=== PATIENT | female | born 1990 | race African-American/Black ===

== ENCOUNTER 2024-03-11 15:58 | Emergency (ER) | payer OTHER, SELFPAY ==
--- OUTSIDE RECORDS SUMMARY | 2024-03-11 16:01 | XMS_ITS | Continuity of Care Document ---
Author Organization [facility] Address [address] [place] [address]- Care Team Providers Care Cake Inspector Name Role Phone Ernestine Reyes NP Primary Care Physician Encounter [facility] Date(s): 01/18/24 - 02/17/[address] [id number]- Encounter Type: Triage Allergies, Adverse Reactions, Alerts No Known Allergies Immunizations Given and Recorded Vaccine Date Status Refusal Reason SARS-CoV-2 mRNA ([id number]) vax 02/12/22 Given SARS-CoV-2 mRNA ([id number]) vax 02/13/21 Recorded influenza virus vaccine, inactivated 02/12/22 Give n influenza virus vaccine, inactivated 12/26/19 Give n influenza virus vaccine, inactivated 03/24/16 Give n influenza virus vaccine, inactivated 03/14/13 Give n influenza virus vaccine, inactivated 1 12/11/11 Gi rudy Measles/Mumps/Rubella Virus Vaccine 02/24/20 Given tetanus/diphtheria/pertussis, acel(Tdap) 11/27/19 Given tetanus/diphtheria/pertussis, acel(Tdap) 09/01/16 Given tetanus/diphtheria/pertussis, acel(Tdap) 2 05/16/12 Given influ virus vac, H1N1, live(oldterm) 3 01/29/09 Gi rudy Human Papillomavirus Vaccine 4 01/29/09 Given Human Papillomavirus Vaccine 5 06/15/08 Given Human Papillomavirus Vaccine 6 04/09/08 Given Meningococcal Conjugate Vaccine 7 04/09/08 Given Tet/Diphth/Acel, Pertussis (oldterm) 8 04/09/08 Gi rudy 1Admin Note: vis 10/2011 2Admin Note: vis 04/21/2011 given 3Admin Note: vis 12/28/08 4Admin Note: vis 04/30/2006 5Admin Note: VIS GIVEN 04/30/2006 6Admin Note: VIS GIVEN 04/30/06 7Admin Note: vis given 11/11/06 8Admin Note: VIS GIVEN 10/07/05 Medications cyclobenzaprine 5 mg oral tablet 1 tablet = 5 mg, By Mouth, 2 times a day, # 42 tablet, 0 Refills, Maintenance, 09/13/23 9:57:00 AM EDT, Tablet, Partial fill upon patient request if the prescription is for a schedule II opioid drug. Start Date: 09/13/23 Stop Date: 09/27/23 Status: Ordered Quantity: 42.0 Unit: tablet Repeat number: 1 FIRST Mouthwash BLM mucous membrane suspension 5 mL, Swish and Spit, Every 4 hours, PRN Mouth Sore Pain, Mix: Benadryl Elixir 4oz, Nystatin Suspension 4oz, Lidocaine 100 mL, Mylanta/Maalox 8oz, # 1 each, 0 Refills, Maintenance, 11/08/23 10:40:00 AM EDT, [facility] #[id number], Partial fill upon patient request if the prescription is for a schedule II opioid drug., 5 mL Swish and Spit Every 4 hours,PRN:Mouth Sore Pain,Instr:Mix: Benadryl Elixir 4oz, Nystatin Suspension 4oz, Lidocaine 100 mL, Mylanta/Maalox 8oz, 158, cm, 11/08/23 10:13:00EDT, Height, 59, kg, 09/24/22 19:46:00 EDT, Dry Weight Start Date: 11/08/23 Status: Ordered Quantity: 1.0 Unit: each Repeat number: 1 Indication: Glossodynia fluticasone 50 mcg/inh nasal spray See Instructions, USE 1 SPRAY IN EACH NOSTRIL IN THE MORNING, # 16 mL, 0 Refills, [id number], 30, USE 1 SPRAY IN EACH NOSTRIL IN THE MORNING, 157, cm, 06/27/21 10:16:00 EDT, Height, 70, kg, 03/04/20 13:14:00 EST, Dry Weight Start Date: 09/03/21 Status: Ordered Quantity: 16.0 Unit: mL Repeat number: 1 gabapentin 300 mg oral capsule 300 mg, 1, capsule, By Mouth, Daily at bedtime, # 30 capsule, Refills 0, Tot. Refills 0, Maintenance, 09/13/23 10:09:00 AM EDT, Route to Pharmacy Electronically, [facility] #[id number], Partial fill upon patient request if the prescription is for a schedule II opioid drug., 158, cm, 09/13/23 9:36:00 EDT, Height, 59, kg, 09/24/22 19:46:00 EDT, Dry Weight Start Date: 09/13/23 Status: Ordered Quantity: 30.0 Unit: capsule Repeat number: 1 Lexapro 20 mg oral tablet 1 tablet = 20 mg, By Mouth, Daily, For anxiety, # 30 tablet, 11 Refills, Maintenance, 06/07/23 11:06:00 AM EDT, Tablet, [facility] #[id number], note dose change, 158, cm, 06/07/23 10:49:00 EDT, Height, 59, kg, 09/24/22 19:46:00 EDT, Dry Weight Start Date: 06/07/23 Status: Ordered Quantity: 30.0 Unit: tablet Repeat number: 12 Melatonin 5 mg oral tablet 1 tablet, By Mouth, Daily at bedtime, PRN NEEDED FOR INSOMNIA FOR, # 120 tablet, 0 Refills, Maintenance, 01/27/23 3:40:00 PM EDT, [facility] #[id number], 158, cm, 11/12/22 10:29:00 EDT, Height, 59, kg, 09/24/22 19:46:00 EDT, Dry Weight Start Date: 01/27/23 Stop Date: 04/27/23 Status: Ordered Quantity: 120.0 Unit: tablet Repeat number: 1 propranolol 10 mg oral tablet 10 mg, 1, tablet, By Mouth, 2 times a day, for 30 days, # 60 tablet, Refills 5, Tot. Refills 5, Hard Stop 03/05/24 12:33:00 PM EST, 09/07/23 12:33:00 PM EDT, Route to Pharmacy Electronically, [facility] #[id number], Partial fill upon patient request if the prescription is for a schedule II opioid drug., 158, cm, 08/16/23 13:46:00 EDT, Height, 59, kg, 09/24/22 19:46:00 EDT, Dry Weight Start Date: 09/07/23 Stop Date: 03/05/24 Status: Ordered Quantity: 60.0 Unit: tablet Repeat number: 6 propranolol 10 mg oral tablet 10 mg, 1, tablet, By Mouth, 2 times a day, # 180 tablet, Refills 1, Tot. Refills 1, Maintenance, 03/05/24 12:33:00 PM EST, Route to Pharmacy Electronically, [facility] #[id number], Partial fill upon patient request if the prescription is for a schedule II opioid drug., 158, cm, 01/19/24 9:39:00EDT, Height, 59, kg, 09/24/22 19:46:00 EDT, Dry Weight Start Date: 03/05/24 Stop Date: 09/01/24 Status: Ordered Quantity: 180.0 Unit: tablet Repeat number: 2 Splint See Instructions, # 1 each, Maintenance, Dx carpal tunnel s. use at bedtime for 30 days, 11/12/22 10:48:00 AM EDT, Supply Start Date: 11/12/22 Status: Ordered Quantity: 1.0 Unit: each Repeat number: 1 sulindac 150 mg oral tablet 1 tablet, By Mouth, 2 times a day, # 60 tablet, 0 Refills, Maintenance, 10/04/23 2:42:00 AM EDT, [facility] #[id number], 158, cm, 09/13/23 9:36:00 EDT, Height, 59, kg, 09/24/22 19:46:00 EDT, Dry Weight Start Date: 10/04/23 Status: Ordered Quantity: 60.0 Unit: tablet Repeat number: 1 SUMAtriptan 50 mg oral tablet 1 tablet = 50 mg, By Mouth, Daily, PRN for migraine headache, may repeat dose after 2 hours up to amaximum of 2, # 12 tablet, 3 Refills, Maintenance, 08/16/23 2:11:00 PM EDT, Tablet, [facility] #[id number], Partial fill upon patient request if the prescription is for a schedule II opioid drug., 158, cm, 08/16/23 13:46:00 EDT, Height, 59, kg, 09/24/22 19:46:00 EDT, Dry Weight Start Date: 08/16/23 Status: Ordered Quantity: 12.0 Unit: tablet Repeat number: 4 Voltaren Arthritis Pain 1% topical gel = 2 Gm, Topically, 4 times a day, # 100 Gm, 2 Refills, Maintenance, 06/07/23 11:06:00 AM EDT, [facility] #[id number], Partial fill upon patient request if the prescription is for a schedule II opioid drug., 2 Gm Topically 4 times a day,x10 days, 158, cm, 06/07/23 10:49:00 EDT, Height, 59, kg, 09/24/22 19:46:00 EDT, Dry Weight Start Date: 06/07/23 Stop Date: 07/07/23 Status: Ordered Quantity: 100.0 Unit: g Repeat number: 3 Zepbound 2.5 mg/0.5 mL subcutaneous solution = 2.5 mg, Subcutaneous Injection, Every week, rotate injection sites, # 4 each, 0 Refills, Maintenance, 01/19/24 12:12:00 PM EDT, Solution, [facility] #[id number], Insurance covers [facility] [phone], 158, cm, 01/19/24 9:39:00 EDT, Height, 59, kg, 09/24/22 19:46:00 EDT, Dry Weight Start Date: 01/19/24 Status: Ordered Quantity: 4.0 Unit: each Repeat number: 1 Indication: Body mass index [BMI] 30.0-30.9, adult Problem List Condition Confirmation Course Effective Dates Status Health St [facility]us Informant Chronic back pain Confirmed Active Depression Confirmed Active Generalized anxiety disorder Confirmed Active Joint pain Confirmed Active Migraine Confirmed 12/01/07 Active Classic migraine with aura Confirmed Active Heart palpitations Confirmed Active Severe obesity (BMI 35.0-39.9) with comorbidity Confirmed Active Social History Social History Type Response Smoking Status Never smoker entered on: 05/25/14 Sex Sex Representation Female (finding) Patient Care team information Care Team Personnel Name: Ernestine Reyes NP Position: [facility] Associate Professional Member Role: PCP Address: [address] [place] [address] Telecom: Care Team Related Persons Name: KD GREGG Name: VERA GREGG Name: HERO GERGG Name: SILVIA PAYNE Name: UMBERTO PAYNE Insurance Providers Guarantor name: JESSIKA GREGG [facility] Health Plan Information #: 1 Payer: [facility] Member Number: NA Policy Number: NA Group Number: NA
[2024-03-11 16:16] VITALS: BP 136/79; PULSE 84; RESP 18; TEMP 36.6; O2SAT 100; BMI 33.0
--- NOTE | 2024-03-11 16:20 | ED_ITS ---
HPI - Headache General Chief Complaint: Headache Stated Complaint: bad headache since yesterday/nauseous Time Seen by Provider: 03/11/24 19:50 Source: patient Limitations: no limitations History of Present Illness ED Provider: Celestina ba PA-C HPI Narrative: 34-year-old female with a history of migraine and morbid obesity, signs of migraine headache for over a day. Patient states the pain originates at the base of her skull and wraps around over the lateral aspect of the left side of her head, is also retro-orbital on the left. Associated phonophobia, photophobia and nausea. Patient typically takes sumatriptan, however she does not have a refill on the prescription. Patient has been using Tylenol without relief from symptoms. Denies head strike or use of blood thinners. Related Data Previous Rx's ?Medication ?Instructions ?Recorded sumatriptan succinate 50 mg tablet 50 mg PO Q2-4H PRN pain #10 tabs 03/11/24 Allergies Allergy/AdvReac Type Severity Reaction Status Date / Time No Known Allergies Allergy Unverified 03/11/24 16:21 [No Known Allergies*] Review of Systems Review of Systems: Yes all other systems are reviewed and are negative Constitutional: Constitutional: Denies fatigue, Denies fever(s) and Reports headache(s) Eyes: Eyes: Denies change in vision ENT: Reports headache(s) Cardiovascular: Cardiovascular: Denies chest pain and Denies dyspnea Respiratory: Respiratory: Denies dyspnea Gastrointestinal: Gastrointestinal: Denies abdominal pain and Reports nausea Neurologic: Reports headache(s) Endocrine: Endocrine: Denies fatigue PMFSH Past Medical History Attestation statement: The following information was validated with the patient. Social History Social History Smoked in Last 30 Days: Yes Use of substances other than those prescribed or required for medical reasons: No Advance Directives: No Advance Directives Information Provided: No Physical Exam Vital Signs: Vital Signs: Last Vital Signs Temp 97.9 F 03/11/24 19:41 Pulse 75 03/11/24 19:41 Resp 16 03/11/24 19:41 BP 114/72 03/11/24 19:41 Pulse Ox 100 03/11/24 19:41 O2 Del Method Room Air 03/11/24 19:41 BMI result Body Mass Index 33.0 Const: Other: Alert, well in appearance Orientation/consciousness: patient oriented x3 Neck: Other: No meningeal sign Neck: Yes full ROM Resp: Other: Nonlabored respiration Cardio: Other: Normal peripheral perfusion Skin: Other: Warm dry no rash Neuro: General: patient oriented x3, gait normal, no focal motor deficits and CN's II-XI intact bilaterally Psych: Other: Calm cooperative Course Course Course Narrative: This is an RME: Additional HPI, ROS, PE not included below will be deferred to primary provider. RME assessment and note performed by: Ambar Kauffman PA-C This is a 63-csby-muy-female, with a hx of migraines, who presents to the ER with complaints of facial pain. No ear pain or dental pain. Reports no sick contacts. Reports that over the last week, she was coughing and sneezing. No fevers. LMP was 10/8, just started spotting. Plan: COVID/Flu/RSV, upreg Medical Decision Making Medical Decision Making MDM Narrative: 34-year-old female with a history of migraine and morbid obesity, signs of migraine headache for over a day. Patient states the pain originates at the base of her skull and wraps around over the lateral aspect of the left side of her head, is also retro-orbital on the left. Associated phonophobia, photophobia and nausea. Patient typically takes sumatriptan, however she does not have a refill on the prescription. Patient has been using Tylenol without relief from symptoms. Denies head strike or use of blood thinners. Problem: Migraines History: Per patient I have considered the following differential diagnoses: Intracranial hemorrhage, tension headache, migraine, meningitis Plan: Patient has a history of migraines, her migraine today is consistent with her typical symptoms. She simply ran out of sumatriptan in his requesting a prescription. I will do so. Thought about meningitis, given posterior neck pain, however she has no meningeal signs on exam. Thought about intracranial hemorrhage, however there has been no preceding trauma, she is not on a blood thinner, she has no neurologic deficits. Imaging not warranted. Lab Data Labs: Lab Results 03/11/24 03/11/24 Range/Units 16:33 19:44 Urine Color Yellow Urine Appearance Cloudy Urine pH 6.5 (5.0-9.0) Ur Specific [place] 1.025 (1.005-1.025) Urine Protein 100 (2+) H (Neg-Trace) mg/dL Urine Glucose (UA) Negative (Negative) mg/dL Urine Ketones 15 (Negative) mg/dL Urine Blood Large (3+) H (Negative) Urine Nitrite Negative (Negative) Ur Leukocyte Esterase Negative (Negative) Urine RBC >20 H (0-2) /HPF Urine WBC 0-5 (0-5) /HPF Ur Squamous Epith Cells 6-10 (0-2) /HPF Urine Bacteria Trace (None Seen) Hyaline Casts 0-2 (0-2) /LPF Urine Test NEGATIVE (NEGATIVE) Influenza Type A (PCR) NEGATIVE (Negative) Influenza Type B (PCR) NEGATIVE (Negative) RSV RNA Qual (PCR) NEGATIVE (Negative) SARS-CoV-2 RNA (RT-PCR) NEGATIVE (Negative) Discharge Plan Discharge Clinical Impression: Migraine Patient Disposition: Home, Self-Care Instructions: Migraine Headache (ED) Additional Instructions: You are being treated for a migraine type headache. Uses sumatriptan as directed. Follow up with your doctor as needed. Prescriptions: New sumatriptan succinate 50 mg tablet 50 mg PO Q2-4H MDD 200 mg PRN (Reason: pain) Qty: 10 0RF Rx Instructions: do not exceed 4 doses per 24 hrs Print Language: Latvian
[2024-03-11 17:15] LABS: Influenza A PCR NEGATIVE (Negative); Influenza B PCR NEGATIVE (Negative); Resp Syncy Virus RNA Qual PCR NEGATIVE (Negative); SARS COV2 PCR INHOUSE NEGATIVE (Negative)
[2024-03-11 19:41] VITALS: BP 114/72; PULSE 75; RESP 16; TEMP 36.6; O2SAT 100
[2024-03-11 19:54] LABS: Appearance Urine Cloudy; Color Urine Yellow; Glucose Urine UA Negative (Negative); Leukocyte Esterase Urine Negative (Negative); Nitrite Urine Negative (Negative); PH 6.5 (5.0-9.0); Specific Gravity - Urine 1.025 (1.005-1.025); UMIC TRIGGER UACC YES; Urine Blood Large (3+) (Negative); Urine Ketones 15 mg/dL (Negative); Urine Protein 100 (2+) mg/dL (Neg-Trace)
[2024-03-11 19:55] LABS: UPreg QC Valid YES; Urine Pregnancy NEGATIVE (NEGATIVE)
[2024-03-11 19:59] LABS: Bacteria Urine Trace (None Seen); Hyaline Casts Urine 0-2 /LPF (0-2); RBC Urine >20 /HPF (0-2); WBC Urine 0-5 /HPF (0-5)
[2024-03-11] MEDS: SUMAtriptan succinate 50 MG TABLET PO (20:29)
[2024-03-11 20:49] VITALS: BP 114/72; PULSE 75; RESP 16; TEMP 36.6; O2SAT 100
== END 2024-03-11 20:50 | disposition home or self-care (01) ==
PROVIDERS: Physician Assistant Medical; Emergency Provider Emergency Medicine; PCP Nurse Practitioner Family
DX: G43.909 Migraine, unspecified, not intractable, without status migrainosus (principal); Z03.818 Encounter for observation for suspected exposure to other biological agents ruled out; R05.9 Cough, unspecified
CPT/HCPCS: 0241U; 81001; 81025; 99283; 99284

== ENCOUNTER 2024-10-06 00:29 | Emergency (ER) | payer OTHER, SELFPAY ==
--- NOTE | ~2024-10-06 | XR_ITS ---
CLINICAL HISTORY: pain 3 view, pelvis and right hip Comparison: None provided Findings: The bones are intact. No significant arthritic change. The soft tissues are unremarkable. IMPRESSION: No acute findings. This document has been electronically signed by: Ab Valderrama MD, PHD on 10/06/2024 04:44:35
[2024-10-06 00:46] VITALS: BP 128/80; PULSE 75; RESP 16; TEMP 36.6; O2SAT 100; BMI 32.8
--- NOTE | 2024-10-06 03:50 | ED.BACK ---
HPI - Back Pain/Injury General Chief Complaint: Back Pain/Injury Stated Complaint: back pain Time Seen by Provider: 10/06/24 03:46 Source: patient Mode of arrival: ambulatory Limitations: no limitations History of Present Illness ED Provider: Dr. Jennifer Hanson HPI Narrative: Patient comes to the emergency room complaining of right hip pain/right flank pain for 5 years. Patient does not have any you symptoms, states it has been steady for the last 5 years. Denies any falls, denies any trauma. Related Data Previous Rx's ?Medication ?Instructions ?Recorded sumatriptan succinate 50 mg tablet 50 mg PO Q2-4H PRN pain #10 tabs 03/11/24 Allergies Allergy/AdvReac Type Severity Reaction Status Date / Time No Known Allergies (No Known Allergy Verified 10/06/24 00:52 Allergies*) Review of Systems Review of Systems: Constitutional : No Weight loss, No Fever, No Chills, No Night Sweats, No Fatigue, No Malaise ENT/Mouth : No Hearing loss, No Ear Pain, No Nasal Congestion, No Sinus Pain, No Hoarseness, No sore throat, No Rhinorrhea, No Swallowing Difficulty Eyes: No Eye Pain, No Swelling, No Redness, No Foreign Body, No Discharge, No Vision Changes Cardiovascular : No Chest Pain, No SOB, No Dyspnea on Exertion, No Orthopnea, No Edema, No Palpitations Respiratory : No Cough, No Sputum, No Wheezing, No Smoke Exposure, No Dyspnea Gastrointestinal : No Nausea, No Vomiting, No Diarrhea, No Constipation, No abdominal Pain, No Hematochezia, No Melena Genitourinary : no irregular bleeding, No Dysuria, No Urinary Frequency, No Hematuria, No Urinary Incontinence, No Urgency, No Flank Pain, No Urinary Flow Changes, No Hesitancy Musculoskeletal : Complaining of right hip/right flank pain for 5 years, No Myalgias, No Joint Swelling Skin : No Skin Lesions, No rash Neuro : No Weakness, No Numbness, No Paresthesias, No Loss of Consciousness, No Dizziness, No Headache Psych : No Anxiety/Panic, No Depression, No SI/HI/AH/VH, No Social Issues, Heme/Lymph: No Bruising, No Bleeding,No Lymphadenopathy Endocrine : No Polyuria, No Polydipsia, No Temperature Intolerance PMFSH Social History Social History Advance Directives: No Do you have a plan to hurt others: No Plan Physical Exam Vital Signs: Vital Signs: Last Vital Signs Temp 97.8 F 10/06/24 00:46 Pulse 75 10/06/24 00:46 Resp 16 10/06/24 00:46 BP 128/80 10/06/24 00:46 Pulse Ox 100 10/06/24 00:46 O2 Del Method Room Air 10/06/24 00:46 BMI result Body Mass Index 32.8 Const: Other: Appearance: Alert. Oriented X3. No acute distress. Eyes: Pupils equal, round and reactive to light. ENT: Pharynx normal. Neck: Normal inspection. Neck supple. No lymph nodes noted. No crepitus CVS: Normal heart rate and rhythm. Pulses normal. Normal S1 and S2 Respiratory: No respiratory distress. Breath sounds normal. No Wheezing. No rales Abdomen: Soft and nontender. No rigidity. No distention. Reports mild CVA tenderness. Skin: Skin warm and dry. Normal skin color. Normal skin turgor. Extremities: No lower extremity edema. No Lacerations. No Rash Neuro: Oriented X 3. No motor deficit. No sensory deficit. Moving all extremities. No slurred speech. CN 2 through 12 grossly intact Psych: calm, cooperative, normal affect Course Course Course Narrative: Patient comes in complaining of right side hip pain for 5 years. Patient denies any acute on chronic pain. Urinalysis and x-ray pending. Patient ambulated with normal steady gait to the bathroom. Medical Decision Making Medical Decision Making [facility] Narrative: Urinalysis negative for UA, my interpretation of x-rays did not show any acute abnormality. Radiology report pending. Patient has been symptomatic for 5 years with no acute on chronic pain. Patient instructed to follow-up with the primary care physician. Lab Data [facility] Lab Attestation statement: I reviewed the patient's lab results. Labs: Lab Results 10/06/24 Range/Units 04:21 Urine Color Yellow Urine Appearance Clear Urine pH 5.5 (5.0-9.0) Ur Specific [place] 1.015 (1.005-1.025) Urine Protein Negative (Neg-Trace) mg/dL Urine Glucose (UA) Negative (Negative) mg/dL Urine Ketones Negative (Negative) mg/dL Urine Blood Negative (Negative) Urine Nitrite Negative (Negative) Ur Leukocyte Esterase Negative (Negative) Discharge Plan Discharge Clinical Impression: Chronic pain Patient Disposition: Home, Self-Care Instructions: Chronic Pain (ED) Additional Instructions: Please follow-up with your primary care physician, you may need to be referred to physical therapy or the chronic pain clinic. Please follow-up with your primary care physician tomorrow. If you have any worsening or new symptoms, please return to the emergency room or call 911 Prescriptions: No Action sumatriptan succinate 50 mg tablet 50 mg PO Q2-4H MDD 200 mg PRN (Reason: pain) Qty: 10 0RF Rx Instructions: do not exceed 4 doses per 24 hrs Print Language: Albanian
[2024-10-06 04:27] LABS: Appearance Urine Clear; Glucose Urine UA Negative (Negative); PH 5.5 (5.0-9.0); Specific Gravity - Urine 1.015 (1.005-1.025)
[2024-10-06 05:01] VITALS: BP 116/72; PULSE 72; RESP 20; TEMP 36.8; O2SAT 99
[2024-10-06 05:09] VITALS: BP 116/72; PULSE 72; RESP 20; TEMP 36.8; O2SAT 99
== END 2024-10-06 05:10 | disposition home or self-care (01) ==
PROVIDERS: Emergency Provider Emergency Medicine; PCP Nurse Practitioner Family
DX: G89.29 Other chronic pain (principal); M25.551 Pain in right hip
CPT/HCPCS: 73502; 81003; 99283

== ENCOUNTER → 2024-10-06 03:49 | Outpatient (BNV) | payer OTHER, SELFPAY | PROVIDERS: Emergency Provider Emergency Medicine; PCP Nurse Practitioner Family; Visit Provider General Practice | DX: M25.551 Pain in right hip (principal) | CPT/HCPCS: 73502 ==

== ENCOUNTER 2024-12-09 09:50 | Emergency (ER) | payer OTHER, SELFPAY ==
[2024-12-09 10:03] VITALS: BP 128/75; PULSE 65; RESP 18; TEMP 36.6; O2SAT 98; BMI 31.5
[2024-12-09 10:35] LABS: COVID-19 Test Positive (Negative); IDNOW Serial# 55D5AD1C
[2024-12-09 10:41] LABS: IDNOW Serial# 58CA691E; Influenza B2 Negative (Negative)
--- NOTE | 2024-12-09 10:55 | ED.GENADULT ---
HPI - General Adult General Chief complaint: General Medical Stated complaint: headache body ache chills fever Time Seen by Provider: 12/09/24 10:54 Source: patient Mode of arrival: ambulatory Limitations: no limitations History of Present Illness ED Provider: YAMILETH VILLALBA PA-C HPI narrative: 34 year old female presents to the ED today for evaluation of headache, chills and body aches x3 days. She is currently in school with unknown sick contacts. She has children at home who are not currently ill. Denies documented fever, nausea/vomiting/diarrhea, abdominal pain. No other concerns. Related Data Previous Rx's ?Medication ?Instructions ?Recorded sumatriptan succinate 50 mg tablet 50 mg PO Q2-4H PRN pain #10 tabs 03/11/24 Allergies Allergy/AdvReac Type Severity Reaction Status Date / Time No Known Allergies (No Known Allergy Verified 12/09/24 10:05 Allergies*) Review of Systems Review of Systems: Yes all other systems are reviewed and are negative PMFSH Past Medical History Attestation statement: The following information was validated with the patient. Source: old records reviewed and nursing notes reviewed Social History Social History Advance Directives: No Advance Directives Information Provided: No Do you have a plan to hurt others: No Plan Physical Exam ED Vital Signs: Vital Signs - 24 hr 12/09/24 10:03 12/09/24 11:22 Temperature 98 F 98 F Pulse Rate 65 65 Respiratory Rate 18 18 Blood Pressure 128/75 128/75 Pulse Oximetry 98 98 Oxygen Delivery Method Room Air BMI result Body Mass Index 31.5 Vital signs stable General: Well appearing, in no acute distress. Skin: Warm, dry, intact. No rashes or lesions. Head: Normocephalic, atraumatic. EENT: Hearing is intact b/l. Conjunctiva clear. PERRLA. Moist mucous membranes.?Posterior oropharynx erythematous without edema. No tonsillar exudates or masses. Uvula midline. Controlling secretions and speaking in complete sentences. Cardiac: Chest wall symmetric. RRR Lungs: Normal respiratory effort without accessory muscle use. CTA bilaterally. No rales, rhonchi, or wheezes.? Abdomen: Soft, non-tender, non-distended. No rebound tenderness or guarding. Positive BS x4. Ext: Upper and lower extremities atraumatic, without tenderness, deformity, swelling or erythema. Full ROM throughout. Neuro: AOx3. Normal speech. Ambulating with steady gait. Course Course Course Narrative: Patient tested positive for COVID. Educated on symptomatic treatment. Patient has remained stable throughout ED visit today. Discussed worrisome signs and symptoms and when to return to the ED. All questions answered at this time. Patient is agreeable with disposition and stable for discharge. Medical Decision Making Medical Decision Making [facility] Narrative: 34 year old female presents to the ED today for evaluation of headache, chills and body aches x3 days. vital signs stable. afebrile, not hypoxic. she is well appearing and in NAD. exam is benign. Differential diagnosis includes viral syndrome, headache, migraine. Lower suspicion for pneumonia, bronchitis. Unlikely [employer], retropharyngeal abscess, epiglottitis, peritonsillar abscess. Plan for viral swabs Differential Diagnosis Differential Diagnoses: The differential diagnosis associated with the presentation includes As above Admission/Observation Not indicated Lab Data [facility] Lab Attestation statement: I reviewed the patient's lab results. As above Labs: Lab Results 12/09/24 Range/Units 10:09 COVID-19 (CHUCKIE) Positive A (Negative) COVID-19 Clin Com See Note Influenza Type A (GINO) Negative (Negative) Influenza Type B (GINO) Negative (Negative) Influenza A & B Note See Note External Record Review External record reviewed: Inpatient record Social Determinants Patient?s care significantly limited by Social Determinants of Health including: Other Social Determinant of Health Critical Care Time Critical Care Time Critical Care Time: No Discharge Plan Discharge Clinical Impression: COVID-19 Patient Disposition: Home, Self-Care Instructions: COVID-19 (Coronavirus Disease 2019) (ED) Additional Instructions: Today you tested positive for COVID-19.? Take Ibuprofen or Tylenol as needed for fevers or body aches.? Quarantine for 5 days and ensure you wear a mask. After 5 days you should wear a mask for 5 days after that.? Practice social distancing and good hand hygiene. Drink plenty of fluids. Follow-up with your primary care provider this week. Return to the emergency department with new or worsening symptoms. In case of emergency call 911 You can purchase a pulse oximeter from your local pharmacy or grocery store, and monitor your oxygen saturation if it goes below 94% you should return to the emergency department for further evaluation. Prescriptions: No Action sumatriptan succinate 50 mg tablet 50 mg PO Q2-4H MDD 200 mg PRN (Reason: pain) Qty: 10 0RF Rx Instructions: do not exceed 4 doses per 24 hrs Referrals: Ernestine Reyes CNP [Primary Care Provider, Family Practice] Stand Alone Forms: Work/School Release Interventions: ED Discharge Assessment Last Done: 12/09/24 11:22 Discharge Date/Time: 12/09/24 11:23 Print Language: Ugandan
[2024-12-09 11:22] VITALS: BP 128/75; PULSE 65; RESP 18; TEMP 36.6; O2SAT 98
== END 2024-12-09 11:23 | disposition home or self-care (01) ==
PROVIDERS: Emergency Provider Emergency Medicine; PCP Nurse Practitioner Family
DX: U07.1 COVID-19 (principal); R51.9 Headache, unspecified; R68.83 Chills (without fever)
CPT/HCPCS: 87502; 87635; 99282; 99283

== ENCOUNTER 2024-12-31 12:46 | Emergency (ER) | payer OTHER, SELFPAY ==
--- NOTE | ~2024-12-31 | CT_ITS ---
CLINICAL HISTORY: headache CT head without contrast Comparison: None provided Findings: No intra-axial mass, midline shift, hydrocephalus, or acute hemorrhage. No significant atrophy-like change or white matter disease. Small mucous retention cyst within the left maxillary sinus. The orbits are unremarkable. No skull fracture. IMPRESSION: 1. No acute intracranial findings. This document has been electronically signed by: Roma Moore MD on 12/31/2024 15:54:33
--- NOTE | ~2024-12-31 | CT_ITS ---
CLINICAL HISTORY: neck pain CT cervical spine without contrast Comparison: None provided Findings: Vertebral alignment is within normal limits. 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 Cervical ribs are present at the C7 level. No significant degenerative change. No acute fractures or dislocations. No acute findings on limited view of the intracranial contents. No cervical fluid collections or masses. No consolidation or effusion at the lung apices. IMPRESSION: No acute findings. This document has been electronically signed by: Roma Moore MD on 12/31/2024 15:57:04
[2024-12-31 13:00] VITALS: BP 127/82; PULSE 72; RESP 16; TEMP 36.7; O2SAT 99; BMI 30.8
--- NOTE | 2024-12-31 13:05 | ECG_ITS ---
Test Reason : epigastric pain Blood Pressure : */* mmHG Vent. Rate : 66 BPM Atrial Rate : 66 BPM P-R Int : 166 ms QRS Dur : 78 ms QT Int : 398 ms P-R-T Axes : 22 30 18 degrees QTcB Int : 417 ms Normal sinus rhythm Normal ECG When compared with ECG of 30-Aug-2017 09:11, No significant change was found Referred By: Justin Sotomayor Electronically Signed By: REGGIE RAYMOND MD
--- NOTE | 2024-12-31 13:08 | ED.GENADULT ---
HPI - General Adult General Chief complaint: Headache Stated complaint: not feeling good Time Seen by Provider: 12/31/24 16:38 History of Present Illness ED Provider: Cynthia BHATTI narrative: The patient is a 34-year-old female who presents with a complaint of headache. She says that she has a history of migraines. She also says that last month she was sick with the COVID. She tested positive for COVID 3 weeks ago on December 09. She describes having respiratory symptoms at that time which have since resolved. She says that for the last 3 days she has had a headache syndrome that is different than her typical migraines. It is not more severe than her typical migraines it is simply different. She also has a sense of feeling warmth in her forehead and in her neck and in her epigastrium. She has been taking her sumatriptan for the headaches but it has not helped. Today she checked her blood pressure and her blood pressure was aproximately 140/90. She was worried that this was high and she came to the emergency room for evaluation. Related Data Previous Rx's ?Medication ?Instructions ?Recorded sumatriptan succinate 50 mg tablet 50 mg PO Q2-4H PRN pain #10 tabs 03/11/24 Allergies Allergy/AdvReac Type Severity Reaction Status Date / Time No Known Allergies (No Known Allergy Verified 12/31/24 13:03 Allergies*) Review of Systems Review of Systems: Yes all other systems are reviewed and are negative [facility] Social History Social History Advance Directives: No Advance Directives Information Provided: No Do you have a plan to hurt others: No Plan Physical Exam ED Vital Signs: Vital Signs - 24 hr 12/31/24 13:00 12/31/24 17:07 Temperature 98.0 F 98.0 F Pulse Rate 72 72 Respiratory Rate 16 16 Blood Pressure 127/82 127/82 Pulse Oximetry 99 99 Oxygen Delivery Method Room Air Room Air BMI result Body Mass Index 30.8 Const Other: the patient is a 34-year-old woman who was awake and alert. She does not appear ill in any way. She has not appear uncomfortable or toxic in any way. Orientation/consciousness: patient oriented x3 HENMT Other: Face is symmetrical, mucous membranes moist, the appearance of the face is unremarkable. No swelling or tenderness. Eyes Other: Pupils are round equal, conjunctivae are clear, extraocular movements intact. Funduscopic exam is normal bilaterally with unremarkable retinae Neck Other: the neck is entirely supple. No soft tissue swelling. No adenopathy. Neck: Yes no meningeal signs Resp Effort & Inspection: normal respiratory effort Auscultation: clear to auscultation bilaterally Cardio Rate: regular rate Rhythm: regular rhythm Heart sounds: S1 normal heart sound present and S2 normal heart sound present GI Other: Abdomen is soft and nontender Skin Other: The skin is dry and unremarkable Neuro General: patient oriented x3, tone normal, moves all extremities, no meningeal signs, no focal motor deficits and CN's II-XI intact bilaterally Extrem Other: There is no calf swelling or tenderness. No asymmetry. No peripheral edema. Course Course Course Narrative: RME: 34-year-old female history of migraines presents to ED for frontal headache and posterior neck pain. Patient states headache is different from her usual migraine or who states mild epigastric tenderness on palpation. Patient denies any photophobia nausea or vomiting. NIH score is 0. HEENT exam normal. Labs EKG imaging ordered Medications Administered Discontinued Medications Generic Name Dose Route Start Last Admin Trade Name Freq PRN Reason Stop Dose Admin Ketorolac Tromethamine 30 mg 12/31/24 16:53 12/31/24 16:56 Ketorolac Tromethamine 30 Mg/Ml Vial IM 12/31/24 16:54 30 mg ONCE ONE Administration Medical Decision Making Medical Decision Making [facility] Narrative: The patient had testing ordered at triage including CAT scans, blood work, serology testing. She is still testing positive for COVID. A head CT and a cervical spine CT were ordered at triage which are negative. She has a an unremarkable CBC. Normal white count and differential. Mildly elevated CRP and ESR of uncertain significance. Metabolic testing is unremarkable. The patient is vital signs are unremarkable in the emergency room. She was not Significantly hypertensive. Clinically the patient does not appear ill at all. She has a an entirely supple neck. Her description of the headache syndrome does not sound like a subarachnoid hemorrhage or meningitis or other acutely dangerous cause of a headache. I do not know if this syndrome is in any way related to some kind of persistent COVID syndrome. In any event the patient looks well enough that I feel she may be discharged. She was given an injection of ketorolac prior to discharge. She should follow up with her PCP. Lab Data 12/31/24 13:15 12/31/24 13:15 Labs: Lab Results 12/31/24 Range/Units 13:15 WBC 8.4 (4.8-10.8) X10*3/uL RBC 3.91 L (4.20-5.50) X10*6/uL Hgb 11.3 L (12.0-16.0) g/dl Hct 33.1 L (37.0-47.0) % MCV 84.7 (80.0-98.0) fL MCH 28.9 (27.0-33.0) pg MCHC 34.1 (31.0-35.0) g/dl RDW 14.6 (11.0-16.0) % Plt Count 338 (160-400) X10*3/uL MPV 9.6 (9.4-12.3) fL Immature Gran % (Auto) 0.2 (0.0-0.4) % Neut % (Auto) 64.2 (45-73) % Lymph % (Auto) 30.8 (20-40) % [place] % (Auto) 3.3 (2-11) % Eos % (Auto) 1.3 (0-4) % Baso % (Auto) 0.2 (0-2) % Lymph # (Auto) 2.6 (1.2-4.9) X10*3/uL [place] # (Auto) 0.3 (0.1-1.2) X10*3/uL Eos # (Auto) 0.1 (0.0-0.4) X10*3/uL Baso # (Auto) 0.0 (0.0-0.2) X10*3/uL Abs Immat Gran (auto) 0.02 (0.00-0.03) X10*3/uL Absolute Neuts (auto) 5.4 (2.0-8.3) x10*3/uL Absolute Nucleated RBC 0.000 (0.0-0.012) X10*3/uL Nucleated RBC % (auto) 0.0 (0.0-0.2) /100WBC ESR 37 H (0-20) MM/HR Sodium 139 (135-145) mmol/L Potassium 3.7 (3.3-5.1) mmol/L Chloride 106 (96-108) mmol/L Carbon Dioxide 26 (22-29) mmol/L Anion Gap 11 L (12-20) BUN 9 (9-16) mg/dL Creatinine 0.67 (0.5-1.4) mg/dL Estim Creat Clear Calc 113.2 Estimated GFR > 60 Random Glucose 94 (60-115) mg/dL Calcium 9.1 (8.4-10.2) mg/dL Total Bilirubin 0.6 (0.0-1.0) mg/dL AST 24 (5-31) U/L ALT 21 (0-31) U/L Alkaline Phosphatase 103 (39-117) U/L Troponin I High Sens < 2.7 (<3.5-17.0) ng/L C-Reactive Protein 1.76 H (< or = 0.50) mg/dL Total Protein 7.3 (6.5-8.0) g/dL Albumin 4.3 (3.5-5.0) g/dL Lipase 16 (8-78) U/L Beta HCG, Quant < 2 mIU/mL Urine Color RED Urine Appearance Turbid Urine pH 6.0 (5.0-9.0) Ur Specific [place] >= 1.030 H (1.005-1.025) Urine Protein 300 (3+) H (Neg-Trace) mg/dL Urine Glucose (UA) Negative (Negative) mg/dL Urine Ketones Negative (Negative) mg/dL Urine Blood Large (3+) H (Negative) Urine Nitrite Negative (Negative) Ur Leukocyte Esterase Negative (Negative) Urine RBC >20 H (0-2) /HPF Urine WBC 6-10 H (0-5) /HPF Ur Squamous Epith Cells 3-5 (0-2) /HPF Urine Bacteria Trace (None Seen) Hyaline Casts 0-2 (0-2) /LPF COVID-19 (CHUCKIE) Positive A (Negative) COVID-19 Clin Com See Note Influenza Type A (GINO) Negative (Negative) Influenza Type B (GINO) Negative (Negative) Influenza A & B Note See Note S. pyogenes GrpA GINO Negative (Negative) Discharge Plan Discharge Clinical Impression: Headache Patient Disposition: Home, Self-Care Instructions: Acute Headache (ED) Additional Instructions: Your testing today seems very reassuring, although somewhat surprisingly you are still testing positive for COVID. I do not have any significant suspicion that today's headache represent a dangerous headache. Please plan on following up with your regular doctor to discuss this headache further. If you feel significantly worse at any time please return to the emergency department. Prescriptions: No Action sumatriptan succinate 50 mg tablet 50 mg PO Q2-4H MDD 200 mg PRN (Reason: pain) Qty: 10 0RF Rx Instructions: do not exceed 4 doses per 24 hrs Referrals: Ernestine Reyes CNP [Primary Care Provider, Family Practice] Stand Alone Forms: Work/School Release Interventions: ED Discharge Assessment Last Done: 12/31/24 17:07 Discharge Date/Time: 12/31/24 17:07 Print Language: South African
[2024-12-31 13:36] LABS: MANUAL DIFF FLAG NO
[2024-12-31 13:37] LABS: Hematocrit 33.1 % (37.0-47.0); Hemoglobin 11.3 g/dl (12.0-16.0); Imm Gran Abs Auto 0.02 X10*3/uL (0.00-0.03); Imm Gran Pct Auto 0.2 % (0.0-0.4); Lymphocytes Absolute Auto 2.6 X10*3/uL (1.2-4.9); Mean Corpuscular HGB Conc 34.1 g/dl (31.0-35.0); Mean Corpuscular Hemoglobin 28.9 pg (27.0-33.0); Mean Corpuscular Volume 84.7 fL (80.0-98.0); NRBC Abs Auto 0.000 X10*3/uL (0.0-0.012); NRBC Pct Auto 0.0 /100WBC (0.0-0.2); Platelet Count 338 X10*3/uL (160-400); Red Blood Count 3.91 X10*6/uL (4.20-5.50); White Blood Count 8.4 X10*3/uL (4.8-10.8)
[2024-12-31 13:47] LABS: IDNOW Serial# 08D9AD1C; Strep A Nucleic Acid Negative (Negative)
[2024-12-31 13:49] LABS: COVID-19 Test Positive (Negative); IDNOW Serial# 58CA691E
[2024-12-31 13:55] LABS: IDNOW Serial# 55D5AD1C
[2024-12-31 13:56] LABS: Influenza B2 Negative (Negative)
[2024-12-31 13:58] LABS: Alanine Aminotransferase 21 U/L (0-31); Albumin Level 4.3 g/dL (3.5-5.0); Alkaline Phosphatase 103 U/L (39-117); Anion Gap 11 (12-20); Appearance Urine Turbid; Aspartate Amino Transferase 24 U/L (5-31); Blood Urea Nitrogen 9 mg/dL (9-16); Calcium 9.1 mg/dL (8.4-10.2); Carbon Dioxide 26 mmol/L (22-29); Chloride 106 mmol/L (96-108); Creatinine Clr Calc Pharmacy 113.2; Estimated Glomerular Filt Rate > 60; Glucose Urine UA Negative (Negative); Lipase 16 U/L (8-78); PH 6.0 (5.0-9.0); Potassium 3.7 mmol/L (3.3-5.1); Sodium 139 mmol/L (135-145); Specific Gravity - Urine >= 1.030 (1.005-1.025); Total Protein 7.3 g/dL (6.5-8.0); UMIC TRIGGER UACC YES
[2024-12-31 14:03] LABS: Troponin-I High Sensitivity < 2.7 ng/L (<3.5-17.0)
[2024-12-31 14:06] LABS: UACC Culture Trigger YES
[2024-12-31 17:07] VITALS: BP 127/82; PULSE 72; RESP 16; TEMP 36.7; O2SAT 99
== END 2024-12-31 17:07 | disposition home or self-care (01) ==
PROVIDERS: Physician Assistant; Emergency Provider Emergency Medicine; PCP Nurse Practitioner Family
DX: R51.9 Headache, unspecified (principal); Z86.16 Personal history of COVID-19
CPT/HCPCS: 70450; 72125; 80053; 81001; 81003; 83690; 84484; 84702; 85025; 85652; 86140; 87086; 87502; 87635; 87651; 93005; 96372; 99284; J1885

== ENCOUNTER → 2024-12-31 13:05 | Outpatient (BNV) | payer OTHER, SELFPAY | PROVIDERS: Emergency Provider Emergency Medicine; PCP Nurse Practitioner Family; Visit Provider Internal Medicine Cardiovascular Disease | DX: R10.13 Epigastric pain (principal) | CPT/HCPCS: 93010 ==

== ENCOUNTER → 2024-12-31 13:07 | Outpatient (BNV) | payer OTHER, SELFPAY | PROVIDERS: PCP Nurse Practitioner Family; Visit Provider Radiology Diagnostic Radiology | DX: M54.2 Cervicalgia (principal); R51.9 Headache, unspecified | CPT/HCPCS: 70450; 72125 ==